=== PATIENT | female | born 1960 | race Two or more races ===

== ENCOUNTER 2017-07-25 10:56 | Emergency (ER) | payer OTHER ==
[~2017-07-25] VITALS: Ht 152.4 cm; Wt 73.0 kg
[2017-07-25 11:04] VITALS: BP 158/86
== END 2017-07-25 18:08 | disposition home or self-care (01) ==
LOC: ER 11:11
DX: S82.092A Other fracture of left patella, initial encounter for closed fracture (principal); E11.9 Type 2 diabetes mellitus without complications; W01.0XXA Fall on same level from slipping, tripping and stumbling without subsequent striking against object, initial encounter; Y93.89 Activity, other specified; Y92.89 Other specified places as the place of occurrence of the external cause; Y99.8 Other external cause status
CPT/HCPCS: 29505; 73560; 99284